=== PATIENT | female | born 1985 | race Caucasian/White ===

== ENCOUNTER 2017-09-19 10:47 | Emergency (ER) | payer OTHER ==
[~2017-09-19] VITALS: Ht 160 cm; Wt 64.9 kg
[~2017-09-19 10:47] MED LIST: AUGMENTIN500 MG PO; HYDROCODON-ACE1 EAC7 PO; NORCO 5/3251 TABLET PO; PEPCID20 MG PO; ZOFRAN4 MG PO
[2017-09-19 11:26] VITALS: BP 131/90
[2017-09-19] MEDS ORDERED: NAPROSYN500 MG PO (13:16)
[2017-09-19] MEDS ORDERED: FLEXERIL10 MG PO (13:16)
== END 2017-09-19 13:23 | disposition home or self-care (01) ==
LOC: EME 10:47
DX: M62.838 Other muscle spasm (principal); M50.322 Other cervical disc degeneration at C5-C6 level; M43.8X2 Other specified deforming dorsopathies, cervical region
CPT/HCPCS: 72040; 73030; 99281; 99283